=== PATIENT | male | born 1985 | race Caucasian/White ===

== ENCOUNTER 2025-08-07 21:05 | Emergency (ER) | payer MEDICAID ==
[~2025-08-07] VITALS: Ht 180.3 cm; Wt 76.1 kg
[2025-08-07 21:30] VITALS: O2SAT 99
[2025-08-07 21:35] VITALS: BP 123/73; PULSE 77; RESP 12; TEMP 36.8; O2SAT 100
[2025-08-07] MEDS: CYCLOBENZAPRINE 10MG TABLET PO ONE (22:32)
[2025-08-07] MEDS: KETOROLAC 30MG/ML VIAL IM ONE (22:33)
[2025-08-08] MEDS ORDERED: NAPR-1176 MT (00:14)
[2025-08-08] MEDS ORDERED: CYCL10TA21 MT (00:14)
== END 2025-08-08 00:21 | disposition home or self-care (01) ==
LOC: ER 21:05
DX: M54.50 Low back pain, unspecified (principal); R26.2 Difficulty in walking, not elsewhere classified; Z79.899 Other long term (current) drug therapy
CPT/HCPCS: 99285; 72131; 96372; J1885